=== PATIENT | male | born 1955 | race Caucasian/White ===

== ENCOUNTER → 2019-01-29 11:08 | Outpatient (CLI) | payer OTHER ==
--- NOTE | ~2019-01-29 | EC ---
PATIENT:KANIKA GROSSMAN DATE OF SERVICE: 01/29/19 SEX: M MEDICAL RECORD: [id number] DATE OF : [birth year] LOCATION:[facility] AGE OF PATIENT: 63 ADMISSION DATE: 01/29/19 REFERRING PHYSICIAN: INTERPRETING PHYSICIAN: FERNANDO PASCUAL MD ECHOCARDIOGRAM REPORT ECHO CHARGES 4 ECHO COMPLETE Date: 01/29/19 CLINICAL DIAGNOSIS: SOB/SHETTY/ABNORMAL EKG/ PALPITATIONS H/O COPD/HTN ECHOCARDIOGRAPHIC MEASUREMENTS (adult normal given) AC root (d.<3.7cm) 3.3 cm LV Septum d (<1.2 cm> 1.2 cm Valve Excursion 2.1 cm LV Septum (systole) 1.6 cm Left Atria (s.<4.0cm> 5.0 cm LVPW d(<1.2cm) 1.3 cm RV (d.<2.3cm) 2.3 cm LVPW (sytole) 1.9 cm LV diastole(<5.6CM) 6.5 cm MV E-F(>70mm/sec) cm LV systole 4.3 cm LVOT Diameter 2.2 cm MV exc.(>10mm) cm Est.ejection fraction (50-75%) % DOPPLER: LVIT cm/sec A 38.0 cm/sec E 30.0 cm/sec LA cm/sec RVSP 17.0 mmHg LVOT 71.0 cm/sec AOP1/2T m/s Asc. Ao 124 cm/sec RVOT 42.0 cm/sec RA cm/sec PA 81.0 cm/sec AV Gradient Peak 6.1 mmHg AV Mean 3.6 mmHg AV Area 1.9 cm MV Gradient Peak 1.7 mmHg MV Mean 0.42 mmHg MV Area cm COMMENTS: OP - HC Barrel Maker: 1 MARC ADAMSOE Optical Lens Manufacturing Tech: 1 Dr. Pascual TAPE# PACS Pericardial Effusion N DATE OF SERVICE: 01/29/2019 FINDINGS: 1. Left ventricular chamber size is mildly dilated. Left ventricular systolic function is preserved at 50%. 2. Left atrium is enlarged at 5.0 cm. Right atrium and right ventricular chamber sizes are as well mildly dilated. 3. Valvular structures have normal structure and motion. 4. Doppler interrogation only reveals trace mitral regurgitation, no other ECHOCARDIOGRAM REPORT [id number] KANIKA GROSSMAN valvular insufficiency or stenosis. 5. No evidence of pericardial effusion or left ventricular thrombus. Pulmonary systolic pressure is estimated at 17 mmHg. TRANSINT:[id number] Voice Confirmation ID: [id number] DOCUMENT ID: [id number] FERNANDO PASCUAL MD CC: [id number] DICTATION DATE: 01/30/191655 STRUCTURAL STEEL PAINTER: 01/30/192237 DEP CLI 01/29/19 [place] [id number] [place] [id number]
--- NOTE | ~2019-01-29 | ST ---
PATIENT:KANIKA GROSSMAN MEDICAL RECORD: [id number] SEX: M LOCATION:[facility] ORDER #: ADMISSION DATE: 01/29/19 AGE OF PATIENT: 63 REFERRING PHYSICIAN: INTERPRETING PHYSICIAN: FERNANDO MAST MD DATE OF SERVICE: 01/29/2019 PROCEDURE: Nuclear stress test. INDICATION: Angina, shortness of breath, abnormal ECG, hypertension. He was exercised on standard Lexiscan protocol with 32 mCi of sestamibi injected at peak stress, 11 mCi used previously for rest images. FINDINGS: SPECT imaging reveals decreased ejection fraction at 33% with decreased thickening and brightening throughout the inferior segments. SPECT imaging Cardiolite was used as myocardial perfusion agent. There is a mixed perfusion defect inferiorly, partially fixed, partially reversible includes the basal, mid, apical inferior segments; however, there is reversibility in anterior apical. This includes the basal, mid, apical, anterior segments as well as the apex itself. The degree of reversibility is mild. There is reversibility throughout the entire inferior as well as anteroapical defect making him a very large amount of myocardium involved. OVERALL IMPRESSION: This is a markedly abnormal nuclear stress test, high risk showing reversibility inferiorly and anteriorly and apically suggestive of multivessel coronary artery disease. We will proceed with coronary angiography as followup study. TRANSINT:[id number] Voice Confirmation ID: [id number] DOCUMENT ID: [id number] FERNANDO MAST MD CC: [id number] DICTATION DATE: 01/30/19 1503 BUFFER NICKEL: 01/31/19 0006 DEP CLI 01/29/19 [facility] [address] [place] [address]
== END | disposition home or self-care (01) ==
LOC: D.HCCARDIO 11:08
PROVIDERS: ATTEND Internal Medicine Interventional Cardiology
DX: I20.9 Angina pectoris, unspecified (principal); R06.02 Shortness of breath; I10 Essential (primary) hypertension; R94.39 Abnormal result of other cardiovascular function study